=== PATIENT | male | born 1960 | race American Indian/Alaskan Native ===

== ENCOUNTER 2021-03-10 11:25 | Emergency (ER) | payer SELFPAY ==
--- NOTE | 2021-03-10 12:29 | Emergency Department Report ---
ED General Adult HPI - General Chief complaint: Skin/Abscess/Foreign Body Stated complaint: GENERAL ILLNESS Time Seen by Provider: 03/10/21 12:24 Source: patient Mode of arrival: Ambulatory Limitations: No Limitations - History of Present Illness Initial comments: 60 y/o male pt presents to the ED w/ complaints of an insect crawling out of his skin last night. Pt captured video footage on his mobile device of a dark, round insect with 6-8 legs expulsing itself from his suprapubic area. No current steroid or antibiotic use. No recent travel. No known sick contacts. Denies fever, chills, nausea, vomiting, rash, fatigue, dizziness, abnormal bleeding/bruising. Denies all other complaints at this time. - Related Data Previous Rx's Medication Instructions Recorded Last Taken Type Amoxicillin/Potassium Clav 400 mg PO Q8HR #1 bottle 05/01/16 Unknown Rx [Augmentin 400-57 MG / 5ml] HYDROcodone/Acetaminop 7.5-325 15 ml PO Q4HR PRN #150 ml 05/01/16 Unknown Rx [[facility]] Doxycycline Hyclate 200 mg PO ONCE #1 tablet. 03/10/21 Unknown Rx Allergies Allergy/AdvReac Type Severity Reaction Status Date / Time aspirin AdvReac Unknown Verified 05/01/16 18:50 ED Review of Systems ROS: Stated complaint: GENERAL ILLNESS Other details as noted in HPI Other: GENERAL: Negative for fever. CARDIOVASCULAR: Negative for chest pain. PULMONARY: Negative for shortness of breath. GASTROINTESTINAL: Negative for abdominal pain. MUSCULOSKELETAL: Negative for back pain. NEUROLOGICAL: Negative for headache. INTEGUMENTARY: Negative for rash. ED Past Medical Hx - Past Medical History Additional medical history: glucoma, cataract - Surgical History Past Surgical History?: No - Social History Smoking Status: Never Smoker Substance Use Type: None - Medications Home Medications: Home Medications Medication Instructions Recorded Confirmed Last Taken Type Amoxicillin/Potassium Clav 400 mg PO Q8HR #1 bottle 05/01/16 Unknown Rx [Augmentin 400-57 MG / 5ml] HYDROcodone/Acetaminop 7.5-325 15 ml PO Q4HR PRN #150 ml 05/01/16 Unknown Rx [[facility]] Doxycycline Hyclate 200 mg PO ONCE #1 tablet. 03/10/21 Unknown Rx ED Physical Exam - General Limitations: No Limitations - Other Other exam information: General: Awake, appropriately interactive, no acute distress. Neck: Supple. Full range of motion intact. Cardiovascular: Normal peripheral perfusion. Pulmonary: No respiratory distress. Patient is speaking normally without use of accessory muscles. Skin: No rashes or lesions. Neurological: No facial asymmetry. Speech is clear. Follows commands. Patient is alert and oriented. Musculoskeletal: Moves all four extremities spontaneously with normal range of motion. Psych: Cooperative. Appropriate mood and affect. ED Course Vital Signs 03/10/21 12:12 Temperature 99.3 F Pulse Rate 58 L Respiratory 18 Rate Blood Pressure 130/81 O2 Sat by Pulse 100 Oximetry ED Medical Decision Making - Medical Decision Making History, video footage provided by patient, and physical exam findings suggestive of possible tick bite. Patient is afebrile, hemodynamically stable, neurologically intact. No signs of rash. Patient is otherwise asymptomatic. No clinical indication for further diagnostic work-up on an emergent basis at this time. Patient will be treated empirically with a single dose of Doxycycline 200 mg per current CDC guidelines and referred to primary care provider for close outpatient follow-up. Patient expressed understanding and is agreeable to plan of care. Strict return precautions provided. History, exam, diagnostic testing, and current condition do not suggest worrisome pathology to warrant further testing, continued ED treatment, admission, or surgical evaluation at this point. Given the low probability of a significant medical illness, it would be more likely to result in harm than benefit to perform further testing at this stage. Discussed findings, presumptive diagnosis, need for follow-up and specific signs/symptoms that should prompt immediate return to the emergency department. Instructions were explained in detail to the patient in addition to giving written discharge information. Patient expressed understanding and was given the opportunity to ask questions, all of which were satisfactorily answered prior to discharge home. Critical care attestation.: If time is entered above; I have spent that time in minutes in the direct care of this critically ill patient, excluding procedure time. ED Disposition Clinical Impression: Insect bite Qualifiers: Encounter type: initial encounter Site of insect bite: pelvic region Qualified Code(s): S30.860A - Insect bite (nonvenomous) of lower back and pelvis, initial encounter; W57.XXXA - Bitten or stung by nonvenomous insect and other nonvenomous arthropods, initial encounter Disposition: TO HOME OR SELFCARE Is pt being admited?: No Does the pt Need Aspirin: No Condition: Stable Instructions: Tick Bite Information, Adult, [id number] Additional Instructions: Take Doxycycline with food as directed. Follow-up with primary care provider this week. Call today to schedule an appointment. See referral information below. Return to the emergency department immediately for new or worsening symptoms. Prescriptions: Doxycycline Hyclate 200 mg PO ONCE #1 tablet.dr Referrals: JERRY HUDDLESTON MD [Primary Care Provider] - 3-5 Days JESUS MANUEL FERRER MD [Staff Physician] - 3-5 Days [facility] [Outside] - 3-5 Days [facility] [Outside] - 3-5 Days [facility] [Outside] - 3-5 Days [facility] [Provider Group] - 3-5 Days Time of Disposition: 12:34
== END 2021-03-10 13:02 | disposition home or self-care (01) ==
LOC: ED 11:25
CPT/HCPCS: 99281